=== PATIENT | male | born 1955 | race Caucasian/White ===

== ENCOUNTER 2016-11-27 07:02 | Inpatient (IN) | payer OTHER ==
[~2016-11-27] VITALS: Ht 170.2 cm; Wt 92.1 kg
[2016-11-27] VITALS (359 sets, daily range): BP systolic 102–131; BP diastolic 60–91; PULSE 56–76; TEMP 97–98.6; O2SAT 90–100
[2016-11-27] MEDS ORDERED: PRINIVIL40 MG PO (09:31)
[2016-11-27] MEDS ORDERED: NORVASC 10MG10 MG PO (09:32)
[2016-11-28 04:05] VITALS: BP 122/68; PULSE 56; TEMP 98.1
[2016-11-28 09:25] LABS: BASO % 0.2 % (0.0-2.0); EOS # 0.2 (0.0-0.7); EOS % 1.5 % (0-4.0); GRAN # 6.6 (1.4-6.5); GRAN % 66.9 % (42.2-75.2); HEMATOCRIT 39.9 % (42.0-52.0); HEMOGLOBIN 13.8 g/dl (13.5-18.0); LYMPH # 1.9 (1.2-3.4); LYMPH % 19.3 % (20.0-51.0); MEAN CELL VOLUME 85 fl (80.0-100.0); MEAN CORPUSCULAR HEMOGLOBIN 29 pg (27.0-31.0); MEAN CORPUSCULAR HGB CONC 35 g/dl (33.0-37.0); MEAN PLATELET VOLUME 9.4 fl (7.4-10.4); MONO # 1.1 (0.1-0.6); MONO % 11.5 % (1.7-9.3); PLATELET COUNT 184 K/mm3 (130-400); RED BLOOD COUNT 4.69 M/mm3 (4.20-5.60); WHITE BLOOD COUNT 9.8 K/mm3 (4.8-10.8)
[2016-11-28 09:51] VITALS: BP 110/63; PULSE 61; TEMP 98.3
[2016-11-28 09:52] LABS: CALCIUM 8.3 mg/dL (8.4-10.2); CREATININE, serum 0.65 mg/dL (0.66-1.25); POTASSIUM 3.8 mmol/L (3.4-5.0)
[2016-11-28 10:09] LABS: TROPONIN-I 0.061 ng/mL (0.000-0.034)
[2016-11-28 11:47] VITALS: BP 110/61; PULSE 58; TEMP 98.3
[2016-11-28 15:37] VITALS: BP 119/71; PULSE 57; TEMP 98.1
[2016-11-28 20:50] VITALS: BP 130/76; PULSE 63; TEMP 98.1
[2016-11-29] VITALS (7 sets, daily range): BP systolic 110–136; BP diastolic 71–82; PULSE 55–70; TEMP 97.6–98.9
[2016-11-29] MEDS ORDERED: IMDUR 30MG30 MG/TAB PO (16:25)
[2016-11-29] MEDS ORDERED: ASPIRIN E.C. 8181 MG PO (16:25)
[2016-11-29] MEDS ORDERED: IMITREX100 MG PO (16:26)
[2016-11-29] MEDS ORDERED: PERCOCET 325 MG1 TA2 PO (16:27)
[2016-11-29] MEDS ORDERED: ZOFRAN ODT4 MG PO (16:28)
[2016-11-30 02:21] VITALS: BP 143/88; PULSE 65; TEMP 98.3
[2016-11-30 07:58] VITALS: BP 111/76; PULSE 66; TEMP 98.1
[2016-11-30 11:08] VITALS: BP 106/70; PULSE 56; TEMP 97.8
[2016-11-30 15:26] LABS: HEMATOCRIT 43.9 % (42.0-52.0); HEMOGLOBIN 15.6 g/dl (13.5-18.0); MEAN CELL VOLUME 84 fl (80.0-100.0); MEAN CORPUSCULAR HEMOGLOBIN 30 pg (27.0-31.0); MEAN CORPUSCULAR HGB CONC 36 g/dl (33.0-37.0); PLATELET COUNT 207 K/mm3 (130-400); RED BLOOD COUNT 5.24 M/mm3 (4.20-5.60); REDCELL DISTRIBUTION WIDTH-CV 12.8 % (11.5-14.5)
[2016-11-30 15:39] LABS: CALCIUM 8.6 mg/dL (8.4-10.2); CREATININE, serum 0.74 mg/dL (0.66-1.25); POTASSIUM 3.7 mmol/L (3.4-5.0)
[2016-11-30] MEDS ORDERED: ZESTRIL40 MG PO (16:24)
[2016-11-30] MEDS ORDERED: NORVASC 10MG10 MG PO (16:24)
[2016-11-30] MEDS ORDERED: AMOXICILLIN 50500 MG PO (16:24)
[2016-11-30] MEDS ORDERED: FLAGYL500 MG PO (16:24)
[2016-11-30] MEDS ORDERED: PRINIVIL40 MG PO (16:24)
[2016-11-30] MEDS ORDERED: NEURONTIN300 MG/CAP PO (16:24)
== END 2016-11-30 17:14 | disposition home or self-care (01) | DRG 287 ==
LOC: ICU 07:02 → MEDICAL 08:30 → IMCU 15:18 → MEDICAL 17:25
PROVIDERS: Family Medicine; Internal Medicine Cardiovascular Disease
PROC: B2111ZZ Fluoroscopy of Multiple Coronary Arteries using Low Osmolar Contrast (ICD-10-PCS; principal; 2016-11-27)
PROC: B2151ZZ Fluoroscopy of Left Heart using Low Osmolar Contrast (ICD-10-PCS; 2016-11-27)
DX: R07.89 Other chest pain (principal); K29.70 Gastritis, unspecified, without bleeding; I10 Essential (primary) hypertension; R51 Headache; R19.7 Diarrhea, unspecified
CPT/HCPCS: 99223-AI; 99232-AI; 99239; A9270-GY; C1769; C1894; J1170; J2250; J2270; J2405; J2550; J3010; J7030; Q9967